=== PATIENT | female | born 1985 | race African-American/Black ===

== ENCOUNTER → 2016-08-23 | Outpatient (CLI) | payer OTHER ==
[2016-03-31 09:59] VITALS: BP 177/90
[~2016-08-23] MED LIST: FLUO10CA13 PO; LISI2.5T PO
--- NOTE | 2016-08-23 12:28 | KCIC ---
PROCEDURE Left upper extremity sonogram. HISTORY control implant. TECHNIQUE Sonographic imaging of the left upper extremity was performed. FINDINGS There is linear shadowing within the medial left upper arm consistent with the location of an implanted control device. This extends from 9 cm to 12 cm from the antecubital fossa. IMPRESSION Implanted control device within the medial upper arm. Electronically signed by: Ana Ozuna (Aug 23, 2016 12:26:57)
--- NOTE | 2016-08-23 12:39 | KCIC ---
PROCEDURE Left humerus, two views. HISTORY Implanted control device. FINDINGS Frontal and lateral views of the left humerus are obtained. There is no radiodense foreign body to suggest an implanted control device within the left upper arm. There is no fracture, dislocation or subluxation. IMPRESSION No radiographic evidence of an implanted control device within the left upper arm. There is elongated region of hypo echogenicity and shadowing within the medial upper arm on the sonogram performed on the same date which may be due to an implanted device or tract from a prior implanted device. Electronically signed by: Ana Ozuna (Aug 23, 2016 12:38:00)
== END | disposition home or self-care (01) ==
LOC: KCIC 11:05
PROVIDERS: ATTEND Obstetrics & Gynecology
DX: Z30.018 Encounter for initial prescription of other contraceptives (principal)
CPT/HCPCS: 73060; 76881